=== PATIENT | male | born 1950 | race Caucasian/White ===

== ENCOUNTER 2021-08-02 15:27 | Emergency (ER) | payer MEDICARE, SELFPAY ==
[2021-08-02] VITALS (13 sets, daily range): BP systolic 136–175; BP diastolic 84–85; PULSE 66–76; RESP 13–21; TEMP 37.3; O2SAT 87–99; BMI 31.6
--- NOTE | 2021-08-02 15:51 | W.ED.GENADLT ---
HPI - General Adult General: Chief complaint: Abdominal Pain Stated complaint: Fever, Hx of COPD, Cough, O2 was low Time Seen by Provider: 08/02/21 15:51 History of Present Illness: Patient is a 70-year-old male with a history of prior COVID, COPD not on oxygen, HTN, CAD presenting to the emergency room for concerns of fever, generalized weakness, cough, shortness of breath and abdominal pain. Patient tells me symptoms been going on for the last 3 days. 3 days, patient was at home with noted temperature of 100.5 degrees orally. Since then, patient has had a productive cough. Since yesterday, patient also reports right-sided flank pain. Patient denies any diarrhea, nausea/vomiting, melena or hematochezia. Patient has no complaints. No prior history kidney stones. Patient denies any sick contact at home. Patient tells me that his cough is significantly worsened over the last 3 days and he has almost passed out from a previous bout of cough. Patient also reports sore throat and runny nose. Onset:3 days ago Duration:3 days Location:home Severity:moderate Associated symptoms: Reports malaise; Deny chest pain, dyspnea, nausea, rash, palpitations or vomiting Review of Systems Const: Reports: fever(s), chills, fatigue, malaise and other (+generalized weakness) Eyes: Denies: change in vision ENMT: Denies: mouth pain Card: Denies: chest pain or palpitations Resp: Denies: dyspnea or non-productive cough GI: Reports: abdominal pain (R sided abd pain); Denies: nausea, vomiting or diarrhea : Denies: dysuria Musc: Denies: extremity pain Skin/Breast: Denies: rash or new lesions Neuro: Denies: weakness in extremities Psych: Reports: other (Normal mood) Reji/Lymph: Denies: easy bruising PFSH ED PFSH: Medical History (Updated 08/02/21 @ 16:08 by Josh Buenrostro MD) COPD (chronic obstructive pulmonary disease) COVID Hypertension Social History (Updated 08/02/21 @ 16:06 by Josh Buenrostro MD) Smoking and tobacco status: never smoked Alcohol intake: never Substance/Drug Use: never Physical Exam Const: COMMON NORMALS: alert HENMT: COMMON NORMALS: atraumatic HEAD & SCALP: atraumatic MOUTH: moist mucous membranes not abnormal Eye: COMMON NORMALS: EOMs intact bilaterally and conjunctivae normal CONJUNCTIVA: Yes conjunctivae normal Neck/C-Spine: COMMON NORMALS: full ROM and supple Resp: COMMON NORMALS: normal respiratory effort OTHER: +mild expiratory wheezes b/l Cardio: COMMON NORMALS: regular rate RATE: regular rate GI: COMMON NORMALS: Soft to palpation and non-tender PALPATION: Yes Soft to palpation OTHER: No focal TTP. NO guarding rebound, guarding, rigidity. No CVA tenderness to percussion. Neg Oconnell/Neg McBurney's point tenderness, no suprabupic tenderness to palpation. Extremity: COMMON NORMALS: full ROM Neuro: SENSORIUM/ORIENTATION: Yes alert MOTOR EXAM: No Abnormal motor strength present and Other motor observations present (no focal motor deficits) Psych: COMMON NORMALS: speech normal SPEECH: Yes normal speech MOOD & AFFECT: Yes euthymic mood Course Vital Signs: Vital signs: Vital Signs Temperature 99.1 F 08/02/21 15:43 Pulse Rate 68 08/02/21 21:03 Respiratory Rate 20 H 08/02/21 21:03 Blood Pressure 136/85 08/02/21 21:03 Pulse Oximetry 92 08/02/21 21:03 [facility] - General Adult Medical Decision Making 62-year-old male with history of COPD not on oxygen, prior COVID, hypertension presenting to the emergency room for concerns of cough, generalized weakness, malaise, right-sided abdominal pain. On physical exam, patient is noted to be satting at 90-91 on room air. +wheezes b/l without any increased work of breathing. Patient has no focal abdominal tenderness to palpation. Negative for Oconnell sign. Patient is noted to have a white count 11.3. Creatinine 1.6 without prior for comparison. Patient received IVF reports feeling symptomatically improved. No suspicion for other acute intra-abdominal pathology including SBO, biliary pathology, appendicitis, diverticulitis, or other emergent condition requiring surgery. Disposition: Discharge. Patient counseled regarding diagnostic impression, treatment plan. Patient given ED strict return precautions to return for continuation, worsening, or development of new symptoms. Instructed to f/u w/ PCP regarding symptoms today. Patient verbalized understanding. Lab Data : 08/02/21 16:15 08/02/21 16:15 Radiology Impressions Chest X-Ray 08/02/21 15:54 IMPRESSION: No acute findings. Laboratory Results WBC 11.3 10^3/uL (4.0-10.0) H 08/02/21 16:15 RBC 4.15 10^6/uL (4.1-5.3) 08/02/21 16:15 Hgb 13.4 g/dL (11.7-16.6) 08/02/21 16:15 Hct 40.4 % (42.0-52.0) L 08/02/21 16:15 MCV 97.3 fl (80-94) H 08/02/21 16:15 MCH 32.3 pg (28.0-34.0) 08/02/21 16:15 MCHC 33.2 g/dL (30.0-36.0) 08/02/21 16:15 RDW 12.9 % (12.1-15.1) 08/02/21 16:15 Plt Count 243 10^3/cmm (130-400) 08/02/21 16:15 MPV 10.4 fL (7.4-10.4) 08/02/21 16:15 Neut % (Auto) 74.3 % 08/02/21 16:15 Lymph % (Auto) 15.4 % 08/02/21 16:15 Motley % (Auto) 7.5 % 08/02/21 16:15 Eos % (Auto) 2.4 % 08/02/21 16:15 Baso % (Auto) 0.1 % 08/02/21 16:15 Neut # (Auto) 8.39 10^3/uL (1.8-7.7) H 08/02/21 16:15 Lymph # (Auto) 1.7 10^3/uL (0.8-4.8) 08/02/21 16:15 Motley # (Auto) 0.8 10^3/uL (0.2-0.9) 08/02/21 16:15 Eos # (Auto) 0.3 10^3/uL (0.0-0.8) 08/02/21 16:15 Baso # (Auto) 0.0 10^3/uL (0.0-0.1) 08/02/21 16:15 Nucleated RBC % (auto) 0 % 08/02/21 16:15 Nucleated RBCs # 0.0 /100WBC 08/02/21 16:15 Sodium 140 mmol/L (136-145) 08/02/21 16:15 Potassium 4.3 mmol/L (3.5-5.1) 08/02/21 16:15 Chloride 104 mmol/L (98-107) 08/02/21 16:15 Carbon Dioxide 26 mmol/L (22-29) 08/02/21 16:15 Anion Gap 14.3 (5-19) 08/02/21 16:15 BUN 37 mg/dL (8-23) H 08/02/21 16:15 Creatinine 1.6 mg/dL (0.7-1.2) H 08/02/21 16:15 GFR Calculation 43.2 mL/min (90-130) L 08/02/21 16:15 Glucose 123 mg/dL (65-115) H 08/02/21 16:15 Calculated Osmolality 300 mOsm/kg (285-295) H 08/02/21 16:15 Calcium 9.4 mg/dL (8.5-10.5) 08/02/21 16:15 Total Bilirubin 0.2 mg/dL (0.15-1.2) 08/02/21 16:15 AST 20 U/L (0-40) 08/02/21 16:15 ALT 22 U/L (0-41) 08/02/21 16:15 Alkaline Phosphatase 90 IU/L (40-130) 08/02/21 16:15 Total Protein 6.9 g/dL (6.6-8.7) 08/02/21 16:15 Albumin 4.0 g/dL (3.5-5.2) 08/02/21 16:15 Globulin 2.9 g/dL (1.3-4.6) 08/02/21 16:15 Lipase 24 U/L (13-60) 08/02/21 16:15 Coronavirus 229E (PCR) Not detected (NOT DETECT) 08/02/21 16:30 SARS-CoV-2 (PCR) Not detected (NOT DETECT) 08/02/21 16:30 Imaging Data Other Imaging: Radiologist's impression: [address] [address] XRay Report Signed Patient: Calixto Serrano Unit #: [id number] : 1950 Age/Sex: 70 / M ADM Date: 08/02/21 Loc: ER Room/Bed: Attending Dr: Ordering Provider/Ordering MD: Josh Buenrostro MD Date of Service: 08/02/21 Procedure(s): XR chest 1V portable [id number] Accession Number(s): [id number] Report Number: [id number] PROCEDURE INFORMATION: Exam: XR Chest Exam date and time: 08/02/2021 4:17 PM Age: 70 years old Clinical indication: Dyspnea TECHNIQUE: Imaging protocol: XR of the chest. Views: 1 view. COMPARISON: No relevant prior studies available. FINDINGS: Lungs: Unremarkable. No consolidation. Pleural spaces: Unremarkable. No pleural effusion. No pneumothorax. Heart/Mediastinum: Unremarkable. No cardiomegaly. Bones/joints:? Chronic fracture left 4th 5th and 6th posterior ribs. XR/XR chest 1V portable [id number] IMPRESSION: No acute findings. ? Dictated By: Antonino Alonzo Signed By: Antonino Alonzo Signed Date/Time: 08/02/21 180 DD/ 1617 Discharge Plan Discharge Patient Disposition: Home Clinical Impression: Bilateral wheezing, Cough, Generalized weakness Condition: Stable Discharge Orders: Discharge ED (Routine); Ordered 08/02/21 Ordered By: Josh Buenrostro Discharge Diet: Advance as tolerated Discharge Activity: Increase activity as tolerated Patient Instructions: Acute Cough (ED) Activity Restrictions/Additional Instructions: Come back to the emergency room if your symptoms worsen, have any shortness of breath, fever/chills, dehydration, inability tolerate food or drinks, any difficulty breathing, or any new or concerning complaints. Please repeat your blood work for your kidney in 1 week to ensure that your kidney function is not worsening. Come back to the emergency room have any new or concerning complaints. Coding Level of Care Code ED Associate Team Physician for Kelleg Fwd Exam Comprehensive
--- NOTE | 2021-08-02 15:54 | XRR_ITS ---
PROCEDURE INFORMATION: Exam: XR Chest Exam date and time: 08/02/2021 4:17 PM Age: 70 years old Clinical indication: Dyspnea TECHNIQUE: Imaging protocol: XR of the chest. Views: 1 view. COMPARISON: No relevant prior studies available. FINDINGS: Lungs: Unremarkable. No consolidation. Pleural spaces: Unremarkable. No pleural effusion. No pneumothorax. Heart/Mediastinum: Unremarkable. No cardiomegaly. Bones/joints: Chronic fracture left 4th 5th and 6th posterior ribs. XR/XR chest 1V portable [id number] IMPRESSION: No acute findings.
--- NOTE | 2021-08-02 16:02 | ECG_ITS ---
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 Measurements Intervals [place] Rate: 71 P: 25 GA: 172 QRS: -11 QRSD: 84 T: 68 QT: 373 QTc: 407 Interpretive Statements SINUS RHYTHM VOLTAGE CRITERIA FOR LVH [MEETS CRITERIA IN ONE OF: R(aVL), S(V1), R(V5), R(V5/V6)+S(V1)] NONSPECIFIC T-WAVE ABNORMALITY No previous ECG available for comparison Electronically Signed On 08-03-2021 16:20:20 CDT by Seferino Mitchell M.D. [email or web address]
[2021-08-02 16:28] LABS: Basophils % 0.1 %; Eosinophils # 0.3 10^3/uL (0.0-0.8); Eosinophils % 2.4 %; Hematocrit 40.4 % (42.0-52.0); Hemoglobin 13.4 g/dL (11.7-16.6); Lymphocytes # 1.7 10^3/uL (0.8-4.8); Lymphocytes % 15.4 %; Mean Corpuscular HGB Conc 33.2 g/dL (30.0-36.0); Mean Corpuscular Hemoglobin 32.3 pg (28.0-34.0); Mean Corpuscular Volume 97.3 fl (80-94); Mean Platelet Volume 10.4 fL (7.4-10.4); Monocytes # 0.8 10^3/uL (0.2-0.9); Monocytes % 7.5 %; Neutrophils # 8.39 10^3/uL (1.8-7.7); Neutrophils % 74.3 %; Nucleated Red Blood Cells % 0 %; Platelet Count 243 10^3/cmm (130-400); Red Blood Count 4.15 10^6/uL (4.1-5.3); Red Cell Distribution Width 12.9 % (12.1-15.1); White Blood Count 11.3 10^3/uL (4.0-10.0)
[2021-08-02] MEDS: ipratropium-albuterol 3 mL Neb INHALATION ×3 (16:32→16:36)
[2021-08-02 16:51] LABS: Alanine Aminotransferase 22 U/L (0-41); Alkaline Phosphatase 90 IU/L (40-130); Anion Gap 14.3 (5-19); Aspartate Amino Transferase 20 U/L (0-40); Blood Urea Nitrogen 37 mg/dL (8-23); Calcium 9.4 mg/dL (8.5-10.5); Carbon Dioxide 26 mmol/L (22-29); Chloride 104 mmol/L (98-107); Globulin 2.9 g/dL (1.3-4.6); Glomerular Filtration Rate 43.2 mL/min (90-130); Glucose 123 mg/dL (65-115); Lipase 24 U/L (13-60); Osmolality Calculated 300 mOsm/kg (285-295); Potassium 4.3 mmol/L (3.5-5.1); Sodium 140 mmol/L (136-145); Total Bilirubin 0.2 mg/dL (0.15-1.2); Total Protein 6.9 g/dL (6.6-8.7)
[2021-08-02] MEDS: sodium chloride 0.9% 500 ML IV (18:51)
--- NOTE | 2021-08-02 18:51 | PC.NURSE ---
While at bedside patient is in no apparent distress. Patient is alert awake and answering questions appropriately. Patient denies any further needs at this time.
[2021-08-02 18:56] LABS: Adenovirus Not Detected (NOT DETECT); Chlamydia Pneumoniae Not Detected (NOT DETECT); Coronavirus 229E,HKU1,NL63,OC4 Not Detected (NOT DETECT); Human Metapneumovirus Not Detected (NOT DETECT); Human Rhinovirus/Enterovirus Not Detected (NOT DETECT); Influenza A Not Detected (NOT DETECT); Influenza A H1 Not Detected (NOT DETECT); Influenza A H1-2009 Not Detected (NOT DETECT); Influenza A H3 Not Detected (NOT DETECT); Influenza B Not Detected (NOT DETECT); Mycoplasma Pneumoniae Not Detected (NOT DETECT); Parainfluenza Virus Type 1 Not Detected (NOT DETECT); Parainfluenza Virus Type 2 Not Detected (NOT DETECT); Parainfluenza Virus Type 3 Not Detected (NOT DETECT); Parainfluenza Virus Type 4 Not Detected (NOT DETECT); Respiratory Syncytial Virus A Not Detected (NOT DETECT); Respiratory Syncytial Virus B Not Detected (NOT DETECT); SARS-COV-2 Not Detected (NOT DETECT)
[2021-08-02] MEDS: predniSONE 20 mg Tablet 60 MG PO (20:50)
== END 2021-08-02 21:05 | disposition home or self-care (01) ==
PROVIDERS: Emergency Provider Emergency Medicine
DX: J44.9 Chronic obstructive pulmonary disease, unspecified (principal); I10 Essential (primary) hypertension; R06.2 Wheezing; R05.9 Cough, unspecified; R53.1 Weakness; Z86.16 Personal history of COVID-19
CPT/HCPCS: 71045; 80053; 83690; 85025; 87635; 93005; 94640; 96360; 99285; J7040; J7512